=== PATIENT | male | born 1940 | race Caucasian/White ===

== ENCOUNTER 2016-11-22 06:19 | Inpatient (IN) | payer MEDICARE, BC ==
[2016-11-22] MEDS ORDERED: Gabapentin 300 MG Cap PO ONE (06:30)
[2016-11-22] MEDS ORDERED: Bupivacaine 0.5%/EPINEPHrine 1:200,000 50 ML MDV ONE (06:42)
[2016-11-22] MEDS ORDERED: Thrombin (Bovine) 5,000 Unit Kit ONE (06:42)
[2016-11-22] MEDS ORDERED: Povidone-Iodine 10% Soln 118.25 ML Bottle ONE (06:42)
[2016-11-22] MEDS ORDERED: Scopolamine 1.5 MG Transdermal Patch TOP SCH (07:00)
[2016-11-22] MEDS ORDERED: Lactated Ringers 1,000 ML IV SCH (07:00)
[2016-11-22] MEDS ORDERED: Glycopyrrolate 0.2 MG/ML 5 ML MDV ONE (07:07)
[2016-11-22] MEDS ORDERED: Rocuronium 50 MG/5 ML Vial ONE (07:07)
[2016-11-22] MEDS ORDERED: Ondansetron 4 MG/2 ML SDV ONE (07:07)
[2016-11-22] MEDS ORDERED: Succinylcholine 200 MG/10 ML MDV ONE (07:07)
[2016-11-22] MEDS ORDERED: Neostigmine Methylsulfate 1 MG/ML 5 ML Syringe ONE (07:07)
[2016-11-22] MEDS ORDERED: Dexamethasone 4 MG/ML SDV ONE (07:07)
[2016-11-22] MEDS ORDERED: Propofol 200 MG/20 ML SDV ONE ×4 (07:07→10:26)
[2016-11-22] MEDS ORDERED: Vancomycin 1 GM SDV ONE (07:44)
[2016-11-22] MEDS ORDERED: Ropivacaine 49.25 ML, Ketorolac 30 MG, EPINEPHrine 0.5 MG, cloNIDine 80 MCG, Sodium Chl... INJECT ONE ×5 (08:00)
[2016-11-22] MEDS ORDERED: Ketamine 500 MG/5 ML MDV IV SCH (08:00)
[2016-11-22] MEDS ORDERED: ceFAZolin 1 GM in Premix Bag 1 BAG IV ONE (08:15)
[2016-11-22] MEDS: Tranexamic Acid 680 MG in Sodium Chloride 0.9% 50 ML IV SCH ×2 (08:30→11:08)
[2016-11-22] MEDS ORDERED: Lactated Ringers 1,000 ML ONE ×2 (10:11)
[2016-11-22] MEDS ORDERED: Ondansetron 4 MG/2 ML SDV IVPUSH PRN (11:02)
[2016-11-22] MEDS ORDERED: Aluminum Hydroxide/Magnesium Hydroxide/Simethicone Susp 30 ML Cup PO PRN (11:02)
[2016-11-22] MEDS ORDERED: Diazepam 5 MG Tab PO PRN (11:02)
[2016-11-22] MEDS ORDERED: Sennosides 8.6 MG Tab PO PRN (11:02)
[2016-11-22] MEDS ORDERED: oxyCODONE 5 MG Tab PO PRN (11:02)
[2016-11-22] MEDS ORDERED: Zolpidem 5 MG Tab PO PRN (11:02)
[2016-11-22] MEDS ORDERED: Magnesium Hydroxide 400 MG/5 ML Susp 30 ML Cup PO PRN (11:02)
[2016-11-22] MEDS ORDERED: HYDROmorphone 1 MG/ML Syringe IVPUSH PRN (11:02)
[2016-11-22] MEDS ORDERED: Naloxone 0.4 MG/ML SDV IVPUSH PRN (11:02)
[2016-11-22] MEDS ORDERED: ceFAZolin 1 GM in Sodium Chloride 0.9% 50 ML IV SCH ×2 (11:15→12:30)
--- NOTE | 2016-11-22 11:39 | PCM.CONS ---
H&P History of Present Illness - General Date of Service: 11/22/16 Admit Problem/Dx: Admission Diagnosis/Problem Admission Diagnosis/Problem Lumbar spinal fusion Source of Information: Patient, Provider, RN Notes Reviewed History Limitations: Reports: Other (Still experiencing sedation from surgery) - History of Present Illness Initial Comments - Free Text/Narative: Mr. Marie is a 76-year-old gentleman who I have been asked to see by Dr. Reza Aldana for assistance in medical management during the postoperative period. He underwent cervical spine surgery earlier today by Dr. Aldana. Thus far he has been stable, with good oxygenation and vital signs. He remains somewhat sedated following the recent surgery. Right Neck Pain Score (Numeric/FACES): 8 - Related Data Allergies/Adverse Reactions: Allergies Allergy/AdvReac Type Severity Reaction Status Date / Time No Known Allergies Allergy Verified 11/22/16 07:09 Home Medications: Home Meds Acetaminophen [Tylenol Extra Strength] 500 mg PO ASDIRECTED PRN 12/08/15 [ History] Carbidopa/Levodopa [Carbidopa-Levo 25-100 mg Odt] 1.5 tab PO Q3H 12/08/15 [ History] Carbidopa/Levodopa [Sinemet Cr 50-200 mg] 1 tab PO Q3H 12/08/15 [History] Ibuprofen 200 mg PO Q4H PRN 12/08/15 [History] Levothyroxine Sodium 88 mcg PO DAILY 12/08/15 [History] Multivitamin [Daily Multiple Vitamin] 1 tab PO DAILY 12/08/15 [History] Pramipexole Di-HCl [Mirapex] 0.25 - 1 mg PO .6XDAILY 12/08/15 [History] Cyclobenzaprine [Flexeril] 10 mg PO QID PRN 11/18/16 [History] Past Medical History HEENT History: Reports: Hard of Hearing Gastrointestinal History: Reports: GERD Other Gastrointestinal History: [facility] Musculoskeletal History: Reports: Neck Pain, Chronic Neurological History: Reports: Parkinson's Psychiatric History: Reports: Anxiety Endocrine/Metabolic History: Reports: Hypothyroidism - Infectious Disease History Infectious Disease History: Reports: Chicken Pox, Measles, Mumps - Past Surgical History HEENT Surgical History: Reports: Adenoidectomy, Cataract Surgery, Tonsillectomy GI Surgical History: Reports: Colonoscopy, Hernia, Inguinal Neurological Surgical History: Reports: Other (See Below) Other Neurological Surgeries/Procedures: lower back surgery Musculoskeletal Surgical History: Reports: Other (See Below) Other Musculoskeletal Surgeries/Procedures:: knee surgery Social & Family History - Tobacco Use Smoking Status *Q: Former Smoker Years of Tobacco use: 5 Used Tobacco, but Quit: Yes Month Tobacco Last Used: 0 Second Hand Smoke Exposure: No - Caffeine Use Caffeine Use: Reports: Coffee Other Caffeine Use: 5-6 per day - Recreational Drug Use Recreational Drug Use: No H&P Review of Systems - Review of Systems: Review Of Systems: Unable To Obtain General: Reports: Other (Residual sedation from surgery) Exam - Exam Exam: See Below - Vital Signs Vital Signs: Last Vital Signs Temp 98.2 F 11/22/16 11:30 Pulse 84 11/22/16 11:30 Resp 17 11/22/16 11:30 BP 118/79 11/22/16 11:30 Pulse Ox 96 11/22/16 11:30 Weight: 146 lb 1.6 oz - Exam General: Sedated, Lethargic Neck: Other (Dressing in place right anterior neck) Lungs: Clear to Auscultation, Normal Respiratory Effort Cardiovascular: Regular Rate, Regular Rhythm, Normal S1, Normal S2. No: Systolic Murmur, Diastolic Murmur GI/Abdominal Exam: Normal Bowel Sounds, Soft, No Organomegaly, No Distention Extremities: Non-Tender, No Pedal Edema, Normal Capillary Refill Skin: Warm, Dry - Patient Data Lab Results Last 24 hrs: Laboratory Results - last 24 hr 11/22/16 Range/Units 06:57 Blood Type O POSITIVE Gel Antibody Screen Negative Consult PN Assessment/Plan Procedures: Procedures BLOOD TYPING SEROLOGIC ABO (11/18/16) BLOOD TYPING SEROLOGIC RH(D) (11/18/16) COMPLETE CBC AUTOMATED (11/18/16) COMPREHEN METABOLIC PANEL (11/18/16) CULTURE OTHR SPECIMN AEROBIC (11/18/16) INCISION OF SPINAL NERVE (12/11/15) PRP I/LUCIE INIT REDUC >5 YR (12/11/15) RBC ANTIBODY SCREEN (11/18/16) ROUTINE VENIPUNCTURE (11/18/16) TISSUE EXAM BY PATHOLOGIST (12/11/15) X-RAY EXAM NECK SPINE 4/5VWS (11/18/16) Problem List Initiated/Reviewed/Updated: Yes My Orders Last 24 Hours: My Active Orders 11/22/16 11:45 Carbidopa/Levodopa [Carbidopa-Levo 25-100 MG ODT] 1.5 tab PO Q3H Carbidopa/Levodopa [Sinemet Cr 50-200 mg] 1 tab PO Q3H Pramipexole Di-HCl [Mirapex] 0.25 mg PO .6XDAILY 11/23/16 09:00 Levothyroxine [Synthroid] 88 mcg PO DAILY Plan: ASSESSMENT AND RECOMMENDATIONS STATUS POST CERVICAL SPINE SURGERY-stable and doing well in the immediate postoperative period -Postoperative cares per Dr. Aldana PARKINSON'S DISEASE -Continue outpatient medical management HYPOTHYROIDISM -Continue outpatient medical regimen Requesting Provider: FABIEN Date Consult Requested: 11/22/16 Reason for Consult: Postoperative medical management Patient History Reviewed: Yes
[2016-11-22] MEDS ORDERED: [UNRECOGNIZED DRUG - OTHER] PO SCH ×2 (11:45→12:30)
[2016-11-22] MEDS ORDERED: PRAMIPEXOLE DI HCL 0.25 MG PO SCH ×2 (11:45→12:30)
[2016-11-22] MEDS ORDERED: Carbidopa/Levodopa 50-200 MG Tab.ER PO SCH (11:45)
[2016-11-22] MEDS ORDERED: LEVODOPA PO SCH ×4 (11:45→17:00)
[2016-11-22] MEDS ORDERED: CARBIDOPA PO SCH ×4 (11:45→17:00)
[2016-11-22] MEDS ORDERED: PRAMIPEXOLE 0.25 MG PO ONE (13:00)
[2016-11-22] MEDS ORDERED: CARBIDOPA PO ONE ×2 (13:00)
[2016-11-22] MEDS ORDERED: LEVODOPA PO ONE ×2 (13:00)
[2016-11-22] MEDS: ceFAZolin 1 GM in Premix Bag 1 BAG IV SCH ×2 (14:28→22:06)
[2016-11-22] MEDS ORDERED: Carbidopa/Levodopa 25-100 MG Tab (PTOM) PO SCH ×2 (16:00→17:00)
[2016-11-22] MEDS ORDERED: PRAMIPEXOLE 0.25 MG PO SCH ×2 (16:00→17:00)
[2016-11-22] MEDS: SCOPOLAMINE PATCH CHECK TOP SCH (17:05)
--- NOTE | 2016-11-22 19:30 | OR ---
DATE OF PROCEDURE: 11/22/2016 POSTOPERATIVE DIAGNOSES: 1. Spondylolisthesis, C3-C4 and C4-C5. 2. Cervical stenosis C3-4, C4-5, C5-6, and C6-7. 3. Radiculopathy C4 through C7. POSTOPERATIVE DIAGNOSES: 1. Spondylolisthesis, C3-C4 and C4-C5. 2. Cervical stenosis C3-4, C4-5, C5-6, and C6-7. 3. Radiculopathy C4 through C7. PROCEDURES: 1. Anterior cervical diskectomy and fusion, C3-4, C4-5, C5-6 and C6-7. 2. Interbody spacer placement at C3-4, C4-5, C5-6, and C6-7. 3. Segmental instrumentation, C3-4, C4-5, C5-6, and C6-7. 4. Use of operating microscope. 5. Use of intraoperative fluoroscopy. 6. Use of Signify allograft in interbody space. PAINT SPRAYER SANDBLASTER: GLADIS Rodriguez Physician optical assistant, Constance Chairez NP, played an essential role in assisting in this case, helping to position the patient, retract structures as needed, as well as suturing and cutting sutures as indicated. Her presence improved patient's safety and decreased operative time. ANESTHESIA: General endotracheal intubation. FLUID: Lactated Ringer solution. ESTIMATED BLOOD LOSS: 10 mL. COMPLICATIONS: None. SPECIMEN: None. DISCHARGE DISPOSITION: Stable to PACU. Neuromonitoring was normal at baseline at the end of the case. SSEP is decreased in the left lower extremity for a short period of time, which they were repositioned, and came back to normal. Motors throughout the case were normal bilaterally. INSTRUMENTATION: Globus AGX spacer 10 x 16, 7 mm with AGX plate, 16 mm, 0 degree at C3-4 and C4-5, Coalition AGX spacer 10 x 16, 7 mm, 7 degree height with an AGX plate, 16 mm wide, 7 mm height at C5-6 and C6-7, two 14 mm screws were used at C3-4 and two 16 mm screws used at C4-5, C5-6, and C6-7. HISTORY AND INDICATIONS FOR THE PROCEDURE: The patient was seen preoperatively in the clinic. He had failed nonoperative treatment. He had a past history of Parkinson's. He had severe spondylolisthesis at the top two operative levels. Preoperative imaging confirmed the above-mentioned diagnosis. Risks and benefits of the procedure were explained to the patient, and informed consent was obtained. DETAILS OF PROCEDURE: The patient was seen preoperatively by myself and anesthesia staff in the preoperative holding area where the operative site was marked. He was brought to the operative suite by Anesthesia staff where general anesthesia was administered. Sterile Campbell catheter was placed. The operating microscope was draped in sterile manner. The intraoperative fluoroscopy unit was draped in a sterile manner. Neuromonitoring leads were attached and found to be normal at baseline. The patient was then prepped and draped in a sterile manner. A time-out was called identifying the correct patient, the correct procedure, the correct site, and antibiotics begun with appropriate period of time. Lateral fluoroscopy was used to identify the C4-5 interspace. An incision was made just medial to the sternocleidomastoid in an oblique manner on the right side. Bleeding during the case was controlled with Bovie electrocautery and bipolar electrocautery with adjunct use of Floseal, thrombin-soaked Gelfoam and cottonoids. The platysma was divided with Bovie electrocautery. A Weitlaner retractor was then used for retraction. We then used Metzenbaum and pickups to go through the deep fascia, medial sternocleidomastoid, and then blunt dissection down to the prevertebral space at C3-4. This was identified, confirmed twice, once after clearing the prevertebral space and identifying the disk space and then once after the 35 mm retractors from the Shadow-Line blade were inserted. I then used a knife to go through the anterior anulus, which was very minimal, and see all the levels with C3-4 being the best anulus. I then used a drill to eliminate some anterior osteophytes and expose the disk space. At C3-4, I was able to use a pituitary and curettes to get a lot of the disk material out and then used an intervertebral statistics intern to take out the remainder of the disk down to the posterior longitudinal ligament and then bilaterally to the uncinates. I then used a nerve hook to go through the posterior longitudinal ligament and then went out into the foramen bilaterally with curettes to ensure that they were free. I had sequentially spaced a 5 x 7 spacer and inserted the above-mentioned spacer at the level, then awled a track for my screws, then placed the screws, and then confirmed good placement. I then confirmed the placement and let the retractors down prior to 20 minutes retraction. This again was performed at C4-5 with the same type of spacer and screws, except the screws were 2 mm longer. I then ran motors which were normal. We did run normals prior to the case. I had to get a good baseline and they were normal at baseline as well. For the C5-6 and C6-7 levels, I did have to insert [place] pins as the disk space was severely collapsed. After a part of the disk space was removed, I then inserted my intervertebral statistics intern at each of these levels and then went back to posterior longitudinal ligament, divided it with a nerve hook, and then took out any osteophytes. The vertebral endplates were roughed up using a high-speed electric drill. After all the implants were inserted, we took final films, copiously irrigated with 2 L Betadine infused irrigation, and used the operating microscope to look for any bleeders. I did cauterize the medial border of the longus colli bilaterally to prevent any small bleeders later after blood pressure would increase after the surgery. I placed Floseal at the base of the wound and then tamped any excess dry with a Ray-Ekta and then placed a drain at the base of the prevertebral space. I then ran it out the lateral aspect of the wound. I then closed the platysma with three 2-0 interrupted sutures followed by closure with 3-0 Monocryl, followed by Steri-Strips and a sterile dressing. The patient was then allowed to awaken from general anesthesia and taken to the PACU in stable condition. Chevy Aldana DO /[id number]
[2016-11-22] MEDS: PRAMIPEXOLE 0.25 MG PO SCH ×2 (20:02→22:11)
[2016-11-22] MEDS: CARBIDOPA PO SCH ×2 (20:02→22:11)
[2016-11-22] MEDS: Carbidopa/Levodopa 25-100 MG Tab (PTOM) PO SCH ×2 (20:02→22:12)
[2016-11-22] MEDS: LEVODOPA PO SCH ×2 (20:02→22:11)
[2016-11-23] MEDS: LEVODOPA PO SCH ×4 (02:12→10:16)
[2016-11-23] MEDS: Carbidopa/Levodopa 25-100 MG Tab (PTOM) PO SCH ×4 (02:12→10:17)
[2016-11-23] MEDS: CARBIDOPA PO SCH ×4 (02:12→10:16)
[2016-11-23] MEDS: PRAMIPEXOLE 0.25 MG PO SCH ×4 (02:12→10:17)
[2016-11-23] MEDS: Levothyroxine 88 MCG Tab (PTOM) PO SCH ×2 (05:21→07:21)
[2016-11-23] MEDS: ceFAZolin 1 GM in Premix Bag 1 BAG IV SCH (07:35)
[2016-11-23] MEDS ORDERED: Levothyroxine 88 MCG Tab PO SCH ×2 (09:00)
[2016-11-23] MEDS: SCOPOLAMINE PATCH CHECK TOP SCH (10:16)
[2016-11-23] MEDS ORDERED: Acetaminophen/oxyCODONE 325-5 MG Tab PO PRN (11:03)
--- NOTE | 2016-11-23 11:38 | PCM.DCSUM1 ---
Discharge Summary - Hospital Course Brief History: cervical stenosis - Discharge Data Discharge Date: 11/23/16 Discharge Disposition: Home, Self-Care 01 Condition: Good - Patient Summary/Data Operative Procedure(s) Performed: acdf C3-C7 Complications: none Consults: Consultations 11/22/16 11:02 Consult to Physician [CONS] Routine Consulting Provider: Dontrell Lyles Call Completed to Consulting Physician: Yes 11/22/16 11:03 OT Evaluation and Treatment [CONS] Routine Please Evaluate and Treat. OT Reason for Consult: Strengthening This query below is only for informational purposes and is not editable. PT Evaluation and Treatment [CONS] Routine Please Evaluate and Treat. PT Reason for Consult: Strengthening This query below is only for informational purposes and is not editable. - Patient Instructions Diet: Usual Diet as Tolerated Activity: As Tolerated, No Lifting Over 10 Pounds Driving: Do Not Drive Showering/Bathing: May Shower Wound/Incision Care: Keep Operative Site/Wound Site Clean and Dry Notify Provider of: Fever, Increased Pain, Swelling and Redness, Drainage, Nausea and/or Vomiting Other/Special Instructions: please keep your incision clean and dry. Please keep it covered with a daily dressing change for 2 weeks. You may shower but do not submerge your incision underwater. - Discharge Plan Prescriptions/Med Rec: Acetaminophen/oxyCODONE [Percocet 325-5 MG] 1 tab PO Q8HR #90 tablet Home Medications: Home Meds Acetaminophen [Tylenol Extra Strength] 500 mg PO ASDIRECTED PRN 12/08/15 [ History] Carbidopa/Levodopa [Sinemet Cr 50-200 mg] 1 tab PO Q3H 12/08/15 [History] Ibuprofen 200 mg PO Q4H PRN 12/08/15 [History] Levothyroxine Sodium 88 mcg PO DAILY 12/08/15 [History] Multivitamin [Daily Multiple Vitamin] 1 tab PO DAILY 12/08/15 [History] Cyclobenzaprine [Flexeril] 10 mg PO QID PRN 11/18/16 [History] Carbidopa/Levodopa [Carbidopa-Levodopa 25-100] 2 tab PO ASDIRECTED 11/22/16 [ History] Pramipexole [Mirapex] 0.25 mg PO ASDIRECTED 11/22/16 [History] Acetaminophen/oxyCODONE [Percocet 325-5 MG] 1 tab PO Q8HR #90 tablet 11/23/16 [ Rx] Patient Handouts: Anterior Cervical Diskectomy and Fusion - General Info Functional Status: Reports: Pain Controlled - Review of Systems General: Reports: No Symptoms HEENT: Reports: Dysphasia Cardiovascular: Reports: No Symptoms Gastrointestinal: Reports: No Symptoms Genitourinary: Reports: No Symptoms Musculoskeletal: Reports: No Symptoms Skin: Reports: No Symptoms Neurological: Reports: Pre-Existing Deficit, Other Psychiatric: Reports: No Symptoms - Patient Data Vitals - Most Recent: Last Vital Signs Temp 96.7 F 11/23/16 08:00 Pulse 78 11/23/16 08:00 Resp 18 11/23/16 08:00 BP 143/96 H 11/23/16 08:00 Pulse Ox 98 11/23/16 08:00 Weight - Most Recent: 146 lb 1.6 oz I&O - Last 24 hours: Intake & Output 11/22/16 11/23/16 11/23/16 22:59 06:59 14:59 Intake Total 817 227 790 Output Total 1235 212 175 Balance -418 15 615 Lab Results - Last 24 hrs: Laboratory Results - last 24 hr 11/23/16 11/23/16 Range/Units 06:05 06:05 WBC 9.4 (4.5-11.0) K/uL RBC 3.07 L (4.30-5.90) M/uL Hgb 11.5 L (12.0-15.0) g/dL Hct 32.3 L (40.0-54.0) % MCV 105 H (80-98) fL MCH 38 H (27-31) pg MCHC 36 (32-36) % Plt Count 266 (150-400) K/uL Neut % (Auto) 69 H (36-66) % Lymph % (Auto) 19 L (24-44) % Harvey % (Auto) 11 H (2-6) % Eos % (Auto) 0 L (2-4) % Baso % (Auto) 0 (0-1) % Sodium 135 L (140-148) mmol/L Potassium 4.4 (3.6-5.2) mmol/L Chloride 100 (100-108) mmol/L Carbon Dioxide 26 (21-32) mmol/L Anion Gap 13.4 (5.0-14.0) mmol/L BUN 24 H (7-18) mg/dL Creatinine 0.8 (0.8-1.3) mg/dL Est Cr Clr Drug Dosing 75.93 mL/min Estimated GFR (MDRD) > 60 (>60) Glucose 112 H (74-106) mg/dL Calcium 8.2 L (8.5-10.1) mg/dL Med Orders - Current: Current Medications Al Hydroxide/Mg Hydroxide (Mag-Al Plus) 30 ml PO Q4H PRN PRN Reason: Indigestion Carbidopa/Levodopa (Sinemet 25-100 Mg) 0 tab PO Q3H [facility] Last Admin: 11/23/16 10:17 Dose: 0.5 tab Carbidopa/Levodopa (Sinemet Cr 50-200 Mg) 1 tab PO Q3H [facility] Last Admin: 11/23/16 10:16 Dose: 1 tab Diazepam (Valium.) 5 mg PO Q6H PRN PRN Reason: Spasms Levothyroxine Sodium (Synthroid) 88 mcg PO ACBREAKFAST [facility] Last Admin: 11/23/16 07:21 Dose: Not Given Magnesium Hydroxide (Milk Of Magnesia) 30 ml PO BID PRN PRN Reason: Constipation Naloxone HCl (Narcan) 0.2 mg IVPUSH ONETIME PRN PRN Reason: Oversedation Scopolamine Patch (Check) 1 each TOP DAILY [facility] Last Admin: 11/23/16 10:16 Dose: Not Given Pramipexole 0.25 Mg ((Ptom)) 0 mg PO Q3H [facility] Last Admin: 11/23/16 10:17 Dose: 0.25 mg Ondansetron HCl (Zofran) 8 mg IVPUSH Q4H PRN PRN Reason: Nausea/Vomiting Oxycodone/Acetaminophen (Percocet 325-5 Mg) 2 tab PO Q4H PRN PRN Reason: Pain Scopolamine (Transderm-Scop) 1.5 mg TOP Q72H [facility] Stop: 11/25/16 06:00 Last Admin: 11/22/16 07:01 Dose: 1.5 mg Senna (Senna) 8.6 mg PO BID PRN PRN Reason: Constipation Zolpidem Tartrate (Ambien) 5 mg PO BEDTIME PRN PRN Reason: Sleep Last Admin: 11/23/16 02:18 Dose: 5 mg Discontinued Medications Bupivacaine HCl/Epinephrine Bitart (Marcaine 0.5%/Epinephrine 1:200,000) Confirm Administered Dose 50 ml .ROUTE .STK-MED ONE Stop: 11/22/16 06:43 Last Admin: 11/22/16 08:58 Dose: 10 ml Carbidopa/Levodopa (Sinemet Cr 50-200 Mg) 1 tab PO Q3H [facility] Last Admin: 11/22/16 17:37 Dose: Not Given Carbidopa/Levodopa (Sinemet 25-100 Mg) 0 tab PO Q4H [facility] Last Admin: 11/22/16 16:44 Dose: 0.5 tab Carbidopa/Levodopa (Sinemet Cr 50-200 Mg) 1 tab PO Q4H [facility] Last Admin: 11/22/16 16:44 Dose: 1 tab Dexamethasone (Dexamethasone) Confirm Administered Dose 4 mg .ROUTE .STK-MED ONE Stop: 11/22/16 07:08 Fentanyl Citrate (Fentanyl) Confirm Administered Dose 500 mcg .ROUTE .STK-MED ONE Stop: 11/22/16 07:08 Fentanyl Citrate (Fentanyl) Confirm Administered Dose 500 mcg .ROUTE .STK-MED ONE Stop: 11/22/16 08:12 Fentanyl Citrate (Fentanyl) Confirm Administered Dose 500 mcg .ROUTE .STK-MED ONE Stop: 11/22/16 09:33 Gabapentin (Neurontin) 300 mg PO ONETIME ONE Stop: 11/22/16 06:31 Last Admin: 11/22/16 06:58 Dose: 300 mg Glycopyrrolate (Robinul) Confirm Administered Dose 1 mg .ROUTE .STK-MED ONE Stop: 11/22/16 07:08 Hydromorphone HCl (Dilaudid) 1 mg IVPUSH Q2H PRN PRN Reason: Pain Stop: 11/23/16 11:03 Cefazolin Sodium/Dextrose 1 gm (/ Premix) 50 mls @ 100 mls/hr IV ONETIME ONE Stop: 11/22/16 08:44 Last Admin: 11/22/16 07:50 Dose: 100 mls/hr Lactated Ringer's (Ringers, Lactated) 1,000 mls @ 0 mls/hr IV ASDIRECTED [facility] PRN Reason: KVO Last Admin: 11/22/16 07:44 Dose: 25 mls/hr Tranexamic Acid 680 mg/ Sodium (Chloride) 56.8 mls @ 227.2 mls/hr IV Q3H [facility] Stop: 11/22/16 11:14 Last Admin: 11/22/16 11:08 Dose: 227.2 mls/hr Propofol (Diprivan 100 Ml) Confirm Administered Dose 100 mls @ as directed .ROUTE .STK-MED ONE Stop: 11/22/16 07:10 Acetaminophen (Ofirmev) Confirm Administered Dose 100 mls @ as directed IV .K- MED ONE Stop: 11/22/16 09:38 Lactated Ringer's (Ringers, Lactated) Confirm Administered Dose 1,000 mls @ as directed .ROUTE .K-MED ONE Stop: 11/22/16 10:12 Lactated Ringer's (Ringers, Lactated) Confirm Administered Dose 1,000 mls @ as directed .ROUTE .STK-MED ONE Stop: 11/22/16 10:12 Cefazolin Sodium 1 gm/ Sodium (Chloride) 50 mls @ 100 mls/hr IV Q8H [facility] Stop: 11/23/16 03:44 Last Admin: 11/22/16 17:36 Dose: Not Given Cefazolin Sodium/Dextrose 1 gm (/ Premix) 50 mls @ 100 mls/hr IV Q8H [facility] Stop: 11/23/16 07:29 Last Admin: 11/23/16 07:35 Dose: 100 mls/hr Ketamine HCl (Ketalar) 36 mg IV ASDIRECTED [facility] Levothyroxine Sodium (Synthroid) 88 mcg PO DAILY [facility] Neostigmine Methylsulfate (Neostigmine) Confirm Administered Dose 5 mg .ROUTE .STK-MED ONE Stop: 11/22/16 07:08 Non-Formulary Medication (Carbidopa/Levodopa [Carbidopa-Levo 25-100 Mg Odt]) 1.5 tab PO Q3H [facility] Last Admin: 11/22/16 17:36 Dose: Not Given Non-Formulary Medication (Pramipexole Di-Hcl [Mirapex]) 0.25 mg PO .6XDAILY [facility] Pramipexole 0.25 Mg ((Ptom)) 0 mg PO Q4H [facility] Last Admin: 11/22/16 16:46 Dose: 0.25 mg Ondansetron HCl (Zofran) Confirm Administered Dose 4 mg .ROUTE .STK-MED ONE Stop: 11/22/16 07:08 Oxycodone HCl (Oxycodone) 10 mg PO Q4H PRN PRN Reason: Pain Stop: 11/23/16 11:03 Carbidopa/Levodopa (Er 50/200 (Ptom) 0 each PO ONETIME ONE Stop: 11/22/16 13:01 Last Admin: 11/22/16 13:45 Dose: 1 each Carbidopa/Levodopa (25/100 (Ptom)) 0 each PO ONETIME ONE Stop: 11/22/16 13:01 Last Admin: 11/22/16 13:44 Dose: 1 each Pramipexole 0.25mg ( (Ptom)) 0 each PO ONETIME ONE Stop: 11/22/16 13:01 Last Admin: 11/22/16 13:43 Dose: 1 each Povidone Iodine (Betadine 10% Soln) Confirm Administered Dose 1 ml .ROUTE .STK- MED ONE Stop: 11/22/16 06:43 Last Admin: 11/22/16 08:59 Dose: 1 ml Propofol (Diprivan 20 Ml) Confirm Administered Dose 200 mg .ROUTE .STK-MED ONE Stop: 11/22/16 07:08 Propofol (Diprivan 20 Ml) Confirm Administered Dose 400 mg .ROUTE .STK-MED ONE Stop: 11/22/16 09:35 Propofol (Diprivan 20 Ml) Confirm Administered Dose 400 mg .ROUTE .STK-MED ONE Stop: 11/22/16 09:45 Propofol (Diprivan 20 Ml) Confirm Administered Dose 200 mg .ROUTE .STK-MED ONE Stop: 11/22/16 10:27 Rocuronium [place] (Zemuron) Confirm Administered Dose 50 mg .ROUTE .STK-MED ONE Stop: 11/22/16 07:08 Succinylcholine Chloride (Quelicin) Confirm Administered Dose 200 mg .ROUTE .STK -MED ONE Stop: 11/22/16 07:08 Thrombin (Thrombin-Jmi) Confirm Administered Dose 15,000 unit .ROUTE .STK-MED ONE Stop: 11/22/16 06:43 Last Admin: 11/22/16 09:00 Dose: 10,000 unit Vancomycin HCl (Vancomycin) Confirm Administered Dose 1 gm .ROUTE .STK-MED ONE Stop: 11/22/16 07:45 - Exam General: Reports: Alert, Oriented HEENT: Reports: Pupils Equal, Pupils Reactive, EOMI, Mucous Membr. Moist/[place] Neck: Reports: Supple Lungs: Reports: Clear to Auscultation, Normal Respiratory Effort Extremities: Normal Inspection, Normal Range of Motion, Non-Tender, No Pedal Edema, Normal Capillary Refill Skin: Reports: Warm, Dry, Intact Wound/Incisions: Reports: Healing Well, Dressing Dry and Intact, No Drainage Neurological: Reports: No New Focal Deficit Psy/Mental Status: Reports: Alert, Normal Affect, Normal Mood Discharge Operative/Procedures - Procedures Performed Operations: acdf C3-C7 *Q Meaningful Use (DIS) - VTE *Q VTE Criteria *Q: - Stroke *Q Stroke Criteria *Q: - AMI *Q AMI Criteria *Q:
[2016-11-23 11:50] VITALS: BP 104/49
== END 2016-11-23 14:07 | disposition home or self-care (01) | DRG 473 ==
LOC: JP.SDS 06:19 → JP.MS 06:19 → EDSTATUS 08:30 → JP.MS 11:03
PROVIDERS: ADMIT Orthopaedic Surgery; ATTEND Orthopaedic Surgery
PROC: 0RB30ZZ Excision of Cervical Vertebral Disc, Open Approach (ICD-10-PCS; principal; 2016-11-23)
PROC: 0RG20A0 Fusion of 2 or more Cervical Vertebral Joints with Interbody Fusion Device, Anterior Approach, Anterior Column, Open Approach (ICD-10-PCS; principal; 2016-11-23)
DX: M43.12 Spondylolisthesis, cervical region (principal); M48.02 Spinal stenosis, cervical region; M54.12 Radiculopathy, cervical region; K40.90 Unilateral inguinal hernia, without obstruction or gangrene, not specified as recurrent; G20 Parkinson's disease; F41.9 Anxiety disorder, unspecified; E03.9 Hypothyroidism, unspecified; H91.90 Unspecified hearing loss, unspecified ear; Z87.891 Personal history of nicotine dependence
CPT/HCPCS: 36415; 76001; 80048; 85025; 86850; 86900; 86901; 94762; 97110-GP; 97116-GP; 97162-GP; 97530-GP; 97535-GP; A9270-GY; C1713; J0131; J0330; J0690; J1100; J2405; J2704; J2710; J3010; J3370; J3490; J7050; J7120

== ENCOUNTER 2022-07-10 06:18 | Inpatient (IN) | payer MEDICARE, BC ==
[2022-07-10] MEDS ORDERED: Bupivacaine 0.5% 50 ML MDV ONE (06:41)
[2022-07-10] MEDS ORDERED: Lactated Ringers 1,000 ML IV SCH (07:00)
[2022-07-10] MEDS ORDERED: Nozin Nasal Sanitizer NASBOTH ONE (07:00)
[2022-07-10] MEDS ORDERED: Propofol 200 MG/20 ML SDV ONE (07:26)
[2022-07-10] MEDS ORDERED: Ondansetron 4 MG/2 ML SDV ONE (07:26)
[2022-07-10] MEDS ORDERED: fentaNYL 100 MCG/2 ML SDV ONE ×2 (07:26→10:50)
[2022-07-10] MEDS ORDERED: Dexamethasone 4 MG/ML SDV ONE (07:26)
[2022-07-10] MEDS ORDERED: Midazolam 1 MG/ML 2 ML SDV ONE (07:26)
[2022-07-10] MEDS ORDERED: Bupivacaine 0.5% 30 ML SDV ONE (07:27)
[2022-07-10] MEDS ORDERED: ceFAZolin 2 GM in Premix Bag 1 BAG IV ONE (08:00)
[2022-07-10] MEDS ORDERED: Ondansetron 4 MG/2 ML SDV IVPUSH PRN (11:04)
[2022-07-10] MEDS ORDERED: Acetaminophen/HYDROcodone 325-5 MG Tab PO PRN (11:04)
[2022-07-10] MEDS ORDERED: Docusate Sodium 100 MG Cap PO PRN (11:04)
[2022-07-10] MEDS ORDERED: Morphine 2 MG/ML SYRINGE IVPUSH PRN (11:04)
[2022-07-10] MEDS: Acetaminophen/HYDROcodone 325-10 MG Tab PO PRN ×2 (12:05→17:41)
[2022-07-10] MEDS: ceFAZolin 1 GM in Premix Bag 1 BAG IV SCH (15:00)
[2022-07-10] MEDS: Carbidopa/Levodopa 50-200 MG Tab.ER PO SCH ×3 (15:04→21:28)
[2022-07-10] MEDS: Sodium Chloride 0.9% 1,000 ML IV SCH (15:04)
[2022-07-10] MEDS: Carbidopa/Levodopa 25-100 MG Tab PO SCH ×3 (15:06→21:27)
[2022-07-10] MEDS: Nozin Nasal Sanitizer NASBOTH SCH (21:26)
[2022-07-10] MEDS: Cholecalciferol (Vitamin D3) 25 MCG Tab PO SCH (21:28)
[2022-07-10] MEDS: Mirtazapine 15 MG Tab PO SCH (21:29)
[2022-07-10] MEDS: Tamsulosin 0.4 MG Cap.ER PO SCH (21:29)
[2022-07-10] MEDS: Cyclobenzaprine 10 MG Tab PO PRN (21:50)
[2022-07-11] MEDS: Carbidopa/Levodopa 50-200 MG Tab.ER PO SCH ×8 (00:23→20:30)
[2022-07-11] MEDS: ceFAZolin 1 GM in Premix Bag 1 BAG IV SCH ×2 (00:24→08:55)
[2022-07-11] MEDS: Carbidopa/Levodopa 25-100 MG Tab PO SCH ×9 (00:24→20:29)
[2022-07-11] MEDS: Levothyroxine 100 MCG Tab PO SCH (06:05)
[2022-07-11] MEDS: Acetaminophen/HYDROcodone 325-10 MG Tab PO PRN ×2 (06:13→11:55)
[2022-07-11] MEDS: Nozin Nasal Sanitizer NASBOTH SCH ×2 (08:50→20:26)
[2022-07-11] MEDS: Docusate Sodium 100 MG Cap PO SCH (08:50)
[2022-07-11] MEDS: Cholecalciferol (Vitamin D3) 25 MCG Tab PO SCH ×2 (08:51→20:27)
[2022-07-11] MEDS: Vitamin B Complex Tab PO SCH (08:51)
[2022-07-11] MEDS: Finasteride 5 MG Tab PO SCH (08:52)
[2022-07-11] MEDS: Fludrocortisone 0.1 MG Tab PO SCH (08:52)
[2022-07-11] MEDS ORDERED: SILDENAFIL CITRATE 100 MG PO SCH (09:00)
[2022-07-11] MEDS: Sodium Chloride 0.9% 1,000 ML IV SCH (10:01)
[2022-07-11] MEDS: LORazepam 1 MG Tab PO PRN (14:03)
[2022-07-11] MEDS: Tamsulosin 0.4 MG Cap.ER PO SCH (20:31)
[2022-07-11] MEDS: Mirtazapine 15 MG Tab PO SCH (20:31)
[2022-07-12] MEDS: Carbidopa/Levodopa 25-100 MG Tab PO SCH ×9 (00:02→21:04)
[2022-07-12] MEDS: Carbidopa/Levodopa 50-200 MG Tab.ER PO SCH ×8 (00:03→21:05)
[2022-07-12] MEDS: Acetaminophen/HYDROcodone 325-10 MG Tab PO PRN ×4 (00:20→21:10)
[2022-07-12] MEDS: Levothyroxine 100 MCG Tab PO SCH (06:14)
[2022-07-12] MEDS: Nozin Nasal Sanitizer NASBOTH SCH ×2 (08:55→21:02)
[2022-07-12] MEDS: Finasteride 5 MG Tab PO SCH (08:56)
[2022-07-12] MEDS: Vitamin B Complex Tab PO SCH (08:56)
[2022-07-12] MEDS: Cholecalciferol (Vitamin D3) 25 MCG Tab PO SCH ×2 (08:56→21:06)
[2022-07-12] MEDS: Fludrocortisone 0.1 MG Tab PO SCH (08:56)
[2022-07-12] MEDS: Docusate Sodium 100 MG Cap PO SCH (08:57)
[2022-07-12] MEDS: Tamsulosin 0.4 MG Cap.ER PO SCH (21:02)
[2022-07-12] MEDS: Mirtazapine 15 MG Tab PO SCH (21:05)
[2022-07-13] MEDS: Carbidopa/Levodopa 50-200 MG Tab.ER PO SCH ×8 (01:40→20:56)
[2022-07-13] MEDS: Carbidopa/Levodopa 25-100 MG Tab PO SCH ×8 (01:41→20:55)
[2022-07-13] MEDS: Acetaminophen/HYDROcodone 325-10 MG Tab PO PRN (04:20)
[2022-07-13] MEDS: Levothyroxine 100 MCG Tab PO SCH (06:25)
[2022-07-13] MEDS: Nozin Nasal Sanitizer NASBOTH SCH ×2 (09:16→20:56)
[2022-07-13] MEDS: Cyclobenzaprine 10 MG Tab PO PRN ×2 (09:18→17:04)
[2022-07-13] MEDS: Docusate Sodium 100 MG Cap PO SCH (09:20)
[2022-07-13] MEDS: Fludrocortisone 0.1 MG Tab PO SCH (09:25)
[2022-07-13] MEDS: Finasteride 5 MG Tab PO SCH (09:27)
[2022-07-13] MEDS: Cholecalciferol (Vitamin D3) 25 MCG Tab PO SCH ×2 (09:29→20:57)
[2022-07-13] MEDS: Vitamin B Complex Tab PO SCH (09:29)
[2022-07-13] MEDS: Acetaminophen 325 MG Tab PO SCH ×2 (12:43→18:08)
[2022-07-13] MEDS: Tamsulosin 0.4 MG Cap.ER PO SCH (20:56)
[2022-07-13] MEDS: Mirtazapine 15 MG Tab PO SCH (20:56)
[2022-07-14] MEDS: Carbidopa/Levodopa 50-200 MG Tab.ER PO SCH ×8 (00:04→20:52)
[2022-07-14] MEDS: Acetaminophen 325 MG Tab PO SCH ×4 (00:04→18:23)
[2022-07-14] MEDS: Carbidopa/Levodopa 25-100 MG Tab PO SCH ×8 (00:05→20:52)
[2022-07-14] MEDS: Levothyroxine 100 MCG Tab PO SCH (06:11)
[2022-07-14] MEDS: Nozin Nasal Sanitizer NASBOTH SCH ×2 (08:35→20:53)
[2022-07-14] MEDS: Docusate Sodium 100 MG Cap PO SCH (08:36)
[2022-07-14] MEDS: Fludrocortisone 0.1 MG Tab PO SCH (08:37)
[2022-07-14] MEDS: Finasteride 5 MG Tab PO SCH (08:37)
[2022-07-14] MEDS: Vitamin B Complex Tab PO SCH (08:41)
[2022-07-14] MEDS: Cholecalciferol (Vitamin D3) 25 MCG Tab PO SCH ×2 (08:41→20:53)
[2022-07-14] MEDS ORDERED: Sodium Phosphate,Monobasic/Sodium Phosphate,Dibasic Enema 133 ML Bottle RECTAL ONE (09:44)
[2022-07-14] MEDS: Mirtazapine 15 MG Tab PO SCH (20:52)
[2022-07-14] MEDS: Tamsulosin 0.4 MG Cap.ER PO SCH (20:53)
[2022-07-15] MEDS: Carbidopa/Levodopa 50-200 MG Tab.ER PO SCH ×8 (00:24→20:46)
[2022-07-15] MEDS: Carbidopa/Levodopa 25-100 MG Tab PO SCH ×8 (00:25→20:45)
[2022-07-15] MEDS: Acetaminophen 325 MG Tab PO SCH ×4 (00:25→18:19)
[2022-07-15] MEDS: Levothyroxine 100 MCG Tab PO SCH (06:01)
[2022-07-15] MEDS: traMADol 50 MG Tab PO PRN ×2 (06:06→15:05)
[2022-07-15] MEDS: Docusate Sodium 100 MG Cap PO SCH (09:48)
[2022-07-15] MEDS: Nozin Nasal Sanitizer NASBOTH SCH ×2 (09:48→20:45)
[2022-07-15] MEDS: Fludrocortisone 0.1 MG Tab PO SCH (09:49)
[2022-07-15] MEDS: Finasteride 5 MG Tab PO SCH (09:49)
[2022-07-15] MEDS: Cholecalciferol (Vitamin D3) 25 MCG Tab PO SCH ×2 (09:51→20:46)
[2022-07-15] MEDS: Vitamin B Complex Tab PO SCH (09:51)
[2022-07-15] MEDS: Cyclobenzaprine 10 MG Tab PO PRN (19:50)
[2022-07-15] MEDS: Tamsulosin 0.4 MG Cap.ER PO SCH (20:45)
[2022-07-15] MEDS: Mirtazapine 15 MG Tab PO SCH (20:47)
[2022-07-16] MEDS: Carbidopa/Levodopa 50-200 MG Tab.ER PO SCH ×8 (00:02→20:44)
[2022-07-16] MEDS: Carbidopa/Levodopa 25-100 MG Tab PO SCH ×8 (00:03→20:44)
[2022-07-16] MEDS: Acetaminophen 325 MG Tab PO SCH ×4 (00:03→17:59)
[2022-07-16] MEDS: traMADol 50 MG Tab PO PRN ×2 (01:38→12:24)
[2022-07-16] MEDS: Levothyroxine 100 MCG Tab PO SCH (05:50)
[2022-07-16] MEDS: Vitamin B Complex Tab PO SCH (08:17)
[2022-07-16] MEDS: Nozin Nasal Sanitizer NASBOTH SCH ×2 (08:17→20:43)
[2022-07-16] MEDS: Finasteride 5 MG Tab PO SCH (08:18)
[2022-07-16] MEDS: Docusate Sodium 100 MG Cap PO SCH (08:18)
[2022-07-16] MEDS: Cholecalciferol (Vitamin D3) 25 MCG Tab PO SCH ×2 (08:23→20:44)
[2022-07-16] MEDS: Cyclobenzaprine 10 MG Tab PO PRN ×2 (08:30→18:05)
[2022-07-16] MEDS: Fludrocortisone 0.1 MG Tab PO SCH (09:30)
[2022-07-16] MEDS: Tamsulosin 0.4 MG Cap.ER PO SCH (20:44)
[2022-07-16] MEDS: Mirtazapine 15 MG Tab PO SCH (20:44)
[2022-07-17] MEDS: Carbidopa/Levodopa 25-100 MG Tab PO SCH ×9 (00:03→23:46)
[2022-07-17] MEDS: Acetaminophen 325 MG Tab PO SCH ×5 (00:05→23:47)
[2022-07-17] MEDS: Carbidopa/Levodopa 50-200 MG Tab.ER PO SCH ×9 (00:05→23:47)
[2022-07-17] MEDS: Levothyroxine 100 MCG Tab PO SCH (06:36)
[2022-07-17 09:01] LABS: APPEARANCE,URINE TURBID (CLEAR); BILIRUBIN,URINE NEGATIVE (NEGATIVE); COLOR,URINE BROWN (YELLOW); GLUCOSE,URINE NEGATIVE (NEGATIVE); KETONES,URINE TRACE mg/dL (NEGATIVE); LEUKOCYTE ESTERASE,URINE MODERATE (NEGATIVE); NITRITE,URINE POSITIVE (NEGATIVE); OCCULT BLOOD,URINE TRACE-INTACT (NEGATIVE); PH,URINE >= 9.0 (5.0-8.0); PROTEIN,URINE 30 mg/dL (NEGATIVE)
[2022-07-17 09:11] LABS: AMORPHOUS SEDIMENT,URINE FEW; BACTERIA,URINE MANY; EPITHELIAL CELLS,URINE FEW; MUCUS,URINE NOT SEEN; RBC,URINE 0-5 (0-5); WBC,URINE 40-50 (0-5)
[2022-07-17] MEDS: Nozin Nasal Sanitizer NASBOTH SCH ×2 (09:56→21:10)
[2022-07-17] MEDS: Finasteride 5 MG Tab PO SCH (09:57)
[2022-07-17] MEDS: Docusate Sodium 100 MG Cap PO SCH (09:57)
[2022-07-17] MEDS: Fludrocortisone 0.1 MG Tab PO SCH (09:57)
[2022-07-17] MEDS: Cholecalciferol (Vitamin D3) 25 MCG Tab PO SCH ×2 (09:59→21:09)
[2022-07-17] MEDS: Vitamin B Complex Tab PO SCH (09:59)
[2022-07-17] MEDS: LORazepam 1 MG Tab PO PRN (11:43)
[2022-07-17] MEDS: Sulfamethoxazole/Trimethoprim 800-160 MG Tab PO SCH (14:58)
[2022-07-17] MEDS: Tamsulosin 0.4 MG Cap.ER PO SCH (21:08)
[2022-07-17] MEDS: Mirtazapine 15 MG Tab PO SCH (21:08)
[2022-07-18] MEDS: Carbidopa/Levodopa 25-100 MG Tab PO SCH ×3 (03:36→08:33)
[2022-07-18] MEDS: Carbidopa/Levodopa 50-200 MG Tab.ER PO SCH ×3 (03:36→08:33)
[2022-07-18] MEDS: Levothyroxine 100 MCG Tab PO SCH (05:40)
[2022-07-18] MEDS: Sulfamethoxazole/Trimethoprim 800-160 MG Tab PO SCH (05:40)
[2022-07-18] MEDS: Acetaminophen 325 MG Tab PO SCH (05:41)
[2022-07-18 05:48] VITALS: BP 155/74; PULSE 71
[2022-07-18] MEDS: Nozin Nasal Sanitizer NASBOTH SCH (08:32)
[2022-07-18] MEDS: Finasteride 5 MG Tab PO SCH (08:33)
[2022-07-18] MEDS: Vitamin B Complex Tab PO SCH (08:33)
[2022-07-18] MEDS: Cholecalciferol (Vitamin D3) 25 MCG Tab PO SCH (08:33)
[2022-07-18] MEDS: Docusate Sodium 100 MG Cap PO SCH (08:34)
[2022-07-18] MEDS: Fludrocortisone 0.1 MG Tab PO SCH (08:35)
== END 2022-07-18 09:30 | disposition other institution (70) | DRG 483 ==
LOC: JP.SDS 06:18 → JP.2SS 11:48 → JP.SDS 07-11 12:58 → JP.MS 07-11 12:58
PROVIDERS: ADMIT Specialist; ATTEND Specialist
PROC: 0RRK0J6 Replacement of Left Shoulder Joint with Synthetic Substitute, Humeral Surface, Open Approach (ICD-10-PCS; principal; 2022-07-10)
PROC: 0LS40ZZ Reposition Left Upper Arm Tendon, Open Approach (ICD-10-PCS; 2022-07-10)
DX: M19.012 Primary osteoarthritis, left shoulder (principal); G20 Parkinson's disease; E78.5 Hyperlipidemia, unspecified; I10 Essential (primary) hypertension; Z98.890 Other specified postprocedural states
CPT/HCPCS: 23470; 73020-26-LT; 73020-LT; 81001; 87086; 87088; 87186; 97110-GO; 97110-GP; 97140-GP; 97163-GP; 97166-GO; 97530-GO; 97530-GP; 97535-GO; 97535-GP; 97760-GO; A9270-GY; C1713; C1776; J0690; J1100; J2250; J2405; J2704; J3010; J3490; J7030; J7120; U0002

== ENCOUNTER 2023-05-21 07:49 | Inpatient (IN) | payer MEDICARE, BC ==
[~2023-05-21 07:49] MED LIST: Bupivacaine 0.5% 30 ML SDV ONE
[2023-05-21] MEDS: Lactated Ringers 1,000 ML IV SCH (08:14)
[2023-05-21 08:18] LABS: HEMATOCRIT 37.5 % (38.4-49.7); HEMOGLOBIN 13.2 g/dL (12.9-16.9); MEAN CORPUSCULAR HEMOGLOBIN 35.6 pg (31.6-35.5); MEAN CORPUSCULAR HGB CONC 35.2 g/dL (31.6-35.5); MEAN CORPUSCULAR VOLUME 101.1 fL (81.4-99.0); RED BLOOD CELL COUNT 3.71 M/uL (4.14-5.76); WHITE BLOOD CELL COUNT,WBC 6.4 K/uL (3.2-11.0)
[2023-05-21] MEDS ORDERED: Glycopyrrolate 0.2 MG/ML 5 ML MDV ONE (08:20)
[2023-05-21] MEDS ORDERED: Succinylcholine 200 MG/10 ML MDV ONE (08:20)
[2023-05-21] MEDS ORDERED: Propofol 200 MG/20 ML SDV ONE (08:20)
[2023-05-21] MEDS ORDERED: Ondansetron 4 MG/2 ML SDV ONE (08:20)
[2023-05-21] MEDS ORDERED: Rocuronium 50 MG/5 ML Vial ONE (08:20)
[2023-05-21] MEDS ORDERED: Neostigmine Methylsulfate 10 MG/10 ML MDV ONE (08:20)
[2023-05-21] MEDS ORDERED: Dexamethasone 4 MG/ML SDV ONE (08:20)
[2023-05-21] MEDS ORDERED: fentaNYL 250 MCG/5 ML SDV ONE (08:22)
[2023-05-21] MEDS ORDERED: Bupivacaine 0.5% 30 ML SDV ONE (08:23)
[2023-05-21 08:38] LABS: SODIUM,NA 139 mmol/L (140-148)
[2023-05-21 08:39] LABS: A/G RATIO 1.1 (1.2-2.2); ALANINE AMINOTRANSFERASE,ALT 6 U/L (12-78); ALBUMIN 3.9 g/dL (3.4-5.0); ALKALINE PHOSPHATASE 110 U/L (46-116); ANION GAP 11.8 mmol/L (5.0-14.0); ASPARTATE AMNIOTRANSFERASE,AST 13 U/L (15-37); BILIRUBIN TOTAL 0.6 mg/dL (0.2-1.0); BLOOD UREA NITROGEN,BUN 17 mg/dL (7-18); CALCIUM 9.2 mg/dL (8.5-10.1); CARBON DIOXIDE,CO2 30 mmol/L (21-32); CHLORIDE,CL 102 mmol/L (100-108); CREATININE 0.8 mg/dL (0.8-1.3); ESTIMATED GFR 89 mL/min (>60); GLUCOSE RANDOM 94 mg/dL (74-106); POTASSIUM,K 4.8 mmol/L (3.6-5.2); PROTEIN TOTAL,TP 7.6 g/dL (6.4-8.2)
[2023-05-21] MEDS ORDERED: ceFAZolin 2 GM in Sodium Chloride 0.9% 50 ML IV SCH (09:30)
[2023-05-21] MEDS: Nozin Nasal Sanitizer NASBOTH SCH ×2 (09:34→20:43)
[2023-05-21] MEDS: ceFAZolin 2 GM in Premix Bag 1 BAG IV ONE (11:45)
[2023-05-21] MEDS ORDERED: ePHEDrine 50 MG/ML SDV ONE (12:22)
[2023-05-21] MEDS: Bupivacaine 0.5% 50 ML MDV ONE (12:23)
[2023-05-21] MEDS ORDERED: fentaNYL 100 MCG/2 ML SDV ONE (12:39)
[2023-05-21] MEDS ORDERED: Lactated Ringers 1,000 ML ONE (12:43)
[2023-05-21] MEDS ORDERED: Magnesium Hydroxide 400 MG/5 ML Susp 30 ML Cup PO PRN (13:48)
[2023-05-21] MEDS ORDERED: Non-Formulary Medication 1 Each (Cranberry [Cranberry] 500 MG Cap) PO PRN (13:53)
[2023-05-21] MEDS ORDERED: Non-Formulary Medication 1 Each (Cyclobenzaprine Hcl [Cyclobenzaprine Hcl] 5 MG Tablet) PO PRN (13:53)
[2023-05-21] MEDS ORDERED: ceFAZolin 2 GM in Sodium Chloride 0.9% 100 ML IV SCH (14:00)
[2023-05-21] MEDS ORDERED: Non-Formulary Medication 1 Each (Ascorbate Calcium [Vitamin C] 500 MG Tablet) PO SCH (14:00)
[2023-05-21] MEDS ORDERED: CRANBERRY 500 MG PO PRN (14:56)
[2023-05-21] MEDS: Carbidopa/Levodopa 25-100 MG Tab PO SCH ×2 (14:57→17:42)
[2023-05-21] MEDS: Carbidopa/Levodopa 50-200 MG Tab.ER PO SCH ×2 (14:58→17:42)
[2023-05-21] MEDS: Acetaminophen/Codeine 300-30 MG Tab PO PRN (15:12)
[2023-05-21] MEDS: Sodium Chloride 0.9% 1,000 ML IV SCH (15:29)
[2023-05-21] MEDS: Acetaminophen 325 MG Tab PO SCH (16:49)
[2023-05-21] MEDS: ALPRAZolam 0.25 MG Tab PO PRN (18:26)
[2023-05-21] MEDS: ceFAZolin 2 GM in Premix Bag 1 BAG IV SCH (20:40)
[2023-05-21] MEDS: Melatonin 3 MG Tab PO SCH (20:44)
[2023-05-21] MEDS: Ascorbic Acid 500 MG Tab PO SCH (20:44)
[2023-05-21] MEDS ORDERED: Non-Formulary Medication 1 Each (Melatonin [Melatonin] 5 MG Tablet) PO SCH (21:00)
[2023-05-22] MEDS: Levothyroxine 100 MCG Tab PO SCH (05:33)
[2023-05-22] MEDS ORDERED: Levothyroxine 100 MCG Tab PO SCH (06:00)
[2023-05-22] MEDS: Fludrocortisone 0.1 MG Tab PO SCH (08:34)
[2023-05-22] MEDS: Escitalopram 10 MG Tab PO SCH (08:35)
[2023-05-22] MEDS: Polyethylene Glycol 3350 Powder 17 GM Packet PO SCH (08:36)
[2023-05-22] MEDS: VIT E PO SCH (08:36)
[2023-05-22] MEDS: Vitamin B Complex Tab PO SCH (08:37)
[2023-05-22] MEDS: Cholecalciferol (Vitamin D3) 25 MCG Tab PO SCH (08:40)
[2023-05-22] MEDS ORDERED: CITRIC AC SCH (09:00)
[2023-05-22] MEDS ORDERED: [UNRECOGNIZED DRUG - OTHER] SCH (09:00)
[2023-05-22] MEDS ORDERED: GLUCONOLACT SCH (09:00)
[2023-05-22] MEDS ORDERED: MAG CARB SCH (09:00)
[2023-05-22] MEDS ORDERED: VITAMIN B COMPLEX PO SCH (09:00)
[2023-05-22] MEDS ORDERED: VITAMIN E 400 UNIT PO SCH (09:00)
[2023-05-22] MEDS: [UNRECOGNIZED DRUG - OTHER] IRR SCH (10:45)
[2023-05-22] MEDS: Cyclobenzaprine 10 MG Tab PO PRN (10:55)
[2023-05-22] MEDS: Morphine 2 MG/ML SYRINGE IVPUSH PRN (20:03)
[2023-05-22] MEDS: Docusate Sodium 100 MG Cap PO PRN (20:19)
[2023-05-22] MEDS: Sennosides 8.6 MG Tab PO PRN (22:50)
[2023-05-23 05:40] VITALS: BP 136/74; PULSE 72
== END 2023-05-23 11:58 | DRG 483 ==
LOC: JP.SDS 07:49 → JP.MS 13:48 → JP.SDS 05-22 08:40
PROVIDERS: ADMIT Specialist; ATTEND Specialist
PROC: 0RRJ0J6 Replacement of Right Shoulder Joint with Synthetic Substitute, Humeral Surface, Open Approach (ICD-10-PCS; principal; 2023-05-23)
PROC: 0LS30ZZ Reposition Right Upper Arm Tendon, Open Approach (ICD-10-PCS; 2023-05-23)
DX: M19.011 Primary osteoarthritis, right shoulder (principal); M24.542 Contracture, left hand; K21.9 Gastro-esophageal reflux disease without esophagitis; N18.9 Chronic kidney disease, unspecified; Z79.899 Other long term (current) drug therapy
CPT/HCPCS: 36415; 73020-26-RT; 73020-RT; 80053; 85027; 97110-GO; 97161-GP; 97165-GO; 97535-GO; A9270-GY; C1776; J0330; J0665; J0690; J1100; J2270; J2405; J2704; J2710; J3010; J3490; J7030; J7120; U0002